=== PATIENT | female | born 1960 | race Hispanic/Latino ===

== ENCOUNTER 2019-10-16 13:26 | Outpatient (CLI) | payer OTHER ==
[2019-10-16 15:19] LABS: Hemoglobin 12.4 g/dL (12.0-16.0); Mean Corpuscular HGB CONC 32.9 g/dL (32.0-36.0); Mean Corpuscular Hemoglobin 28.8 pg (27.0-31.0); Mean Corpuscular Volume 87.3 fL (78.0-98.0); Mean Platelet Volume 7.1 fL (7.4-10.4); Platelet Count 239 thou/uL (130-400); RBC Distribution Width 12.1 % (11.5-14.5); White Blood Cell (WBC) Count 6.4 thou/uL (4.8-10.8)
[2019-10-16 15:25] LABS: INR-International Normal Ratio 1.1; Prothrombin Time 14.3 SEC (12.0-14.7)
[2019-10-16 15:26] LABS: PTT 29.5 SEC (22.9-36.1)
== END 2019-10-16 13:27 | disposition home or self-care (01) ==
LOC: LABBT 13:26
PROVIDERS: ATTEND Orthopaedic Surgery
DX: Z01.812 Encounter for preprocedural laboratory examination (principal); Z51.81 Encounter for therapeutic drug level monitoring; S52.022A Displaced fracture of olecranon process without intraarticular extension of left ulna, initial encounter for closed fracture; Z79.01 Long term (current) use of anticoagulants
CPT/HCPCS: 85027; 85610; 85730

== ENCOUNTER 2019-10-17 08:09 | Day surgery (SDC) | payer OTHER ==
[2019-10-16 13:27] VITALS: BMI 31.4
[2019-10-17] MEDS ORDERED: Lidocaine 1% (PF) 30 ML VIAL ONE (09:23)
[2019-10-17] MEDS ORDERED: Fentanyl 100 MCG/2 ML VIAL ONE (09:23)
[2019-10-17] MEDS ORDERED: Midazolam HCl 2 mg/2 ml Vial ONE (09:23)
--- NOTE | 2019-10-17 10:25 | OP ---
DATE OF PROCEDURE: 10/17/2019 PROCEDURE PERFORMED: Open reduction and internal fixation of left olecranon fracture. PREOPERATIVE DIAGNOSIS: Displaced left olecranon fracture. POSTOP DIAGNOSIS: Displaced left olecranon fracture COMPLICATIONS: None. ESTIMATED BLOOD LOSS: 50 mL. LANDFILL GRADER: Tyshawn Martin PA-C IMPLANT: Synthes olecranon plate with variable angle locking screws was utilized. INDICATIONS: Ms. Rubin is a 59-year-old female, who fell and fractured her left olecranon. She was indicated for open reduction and internal fixation to restore anatomic alignment. Goal of surgery is to promote normal function of the left upper extremity. Risks do include posttraumatic arthritis, nonunion, malunion, hardware related pain, need for further surgery, and others. DESCRIPTION OF PROCEDURE: Ms. Rubin was identified in the preoperative holding area. Her correct extremity was marked. She was carried to the operating room. She was positioned supine. General anesthesia was induced. A multidisciplinary time-out was performed. The left upper extremity was prepped and draped in sterile fashion. We began the procedure with a posterior approach to the elbow. We dissected down through the subcutaneous tissues to the olecranon. The fascia was opened. We cleared the copious hematoma. We irrigated the elbow joint. We then identified several small articular and nonarticular fragments. These were reduced back into the anatomic position and held with K-wire fixation. Next, we applied a clamp and reduced the olecranon fracture itself back into its anatomic position. We held this again with K-wire fixation. We took x-ray images confirming reduction. We then applied a Synthes olecranon plate. Multiple locking and nonlocking screws were placed. This held our reduction well and our fracture fragments in position. We took x-ray images once more. We thoroughly irrigated with copious lavage. We then closed with 0 Vicryl suture, 2-0 Vicryl suture, and tremayne for the skin. A sterile dressing was applied. The patient was taken to the recovery room in good condition at this point without complication. Job ID: [id number]
[2019-10-17] MEDS ORDERED: traMADol HCl 50 MG TAB PO PRN ×2 (10:57)
[2019-10-17] MEDS ORDERED: Zolpidem Tartrate 5 MG TAB PO PRN (10:57)
[2019-10-17] MEDS ORDERED: HYDROcodone/Acetaminophen 10/325 mg Tablet PO PRN ×2 (10:57)
[2019-10-17] MEDS ORDERED: Ketorolac Tromethamine 30 MG/ML VIAL IVP PRN (10:57)
[2019-10-17] MEDS ORDERED: Promethazine HCl 25 MG/ML VIAL IM PRN (10:57)
[2019-10-17] MEDS ORDERED: Ropivacaine 0.2% 550 ML 550 ML NERVE BLCK SCH (10:57)
[2019-10-17] MEDS ORDERED: Ondansetron PF 4 MG/2 ML Vial IVP PRN (10:57)
[2019-10-17] MEDS ORDERED: Fentanyl 100 MCG/2 ML VIAL SLOW IVP PRN (10:58)
[2019-10-17] MEDS ORDERED: Acetaminophen 325 MG TAB PO PRN (11:00)
[2019-10-17] MEDS ORDERED: Ondansetron PF 4 MG/2 ML Vial ONE ×2 (11:10→13:38)
[2019-10-17] MEDS ORDERED: Ropivacaine 0.2% HCl/PF (40 MG/20 ML VIAL) ONE (11:10)
[2019-10-17] MEDS ORDERED: Glycopyrrolate 0.2 MG/ML 5 ML SYRINGE ONE (11:10)
[2019-10-17] MEDS ORDERED: PROPOFOL 200 MG/20 ML VIAL ONE (11:10)
[2019-10-17] MEDS ORDERED: Ropivacaine 0.5% HCl/PF (150 MG/30 ML VIAL) ONE (11:10)
[2019-10-17] MEDS ORDERED: Lidocaine 1% PF 5 ML VIAL ONE (11:10)
[2019-10-17] MEDS ORDERED: Rocuronium Bromide 10 MG/ML (10ML VIAL) ONE (11:10)
--- NOTE | 2019-10-17 15:23 | RAD ---
LEFT ELBOW 3 VIEWS: INDICATION: Left elbow fracture. COMPARISON: None. FINDINGS: There is instrumentation fixating a comminuted olecranon process fracture. Fracture alignment is hernandez r anatomic. Instrumentation projects in the expected position. Radiocapitellar alignment is normal- appearing. Total fluoroscopic time was 8.1 seconds. Total exposure 0.24 mGy. (Two fluoroscopic spot images were submitted of the left elbow.) IMPRESSION: Open reduction internal fixation of left olecranon fracture. POS: OFF
== END 2019-10-17 14:35 | disposition home or self-care (01) ==
LOC: SDC 08:09
PROVIDERS: ATTEND Orthopaedic Surgery
PROC: 0PSL04Z Reposition Left Ulna with Internal Fixation Device, Open Approach (ICD-10-PCS; principal; 2019-10-17)
DX: S52.022A Displaced fracture of olecranon process without intraarticular extension of left ulna, initial encounter for closed fracture (principal); Z86.718 Personal history of other venous thrombosis and embolism; Z79.01 Long term (current) use of anticoagulants; Y93.89 Activity, other specified; W19.XXXA Unspecified fall, initial encounter
CPT/HCPCS: 76000; A4306; C1713; J0690; J2001; J2250; J2405; J2704; J2795; J3010